=== PATIENT | female | born 1960 | race Caucasian/White ===

== ENCOUNTER 2020-07-30 09:18 | Outpatient (CLI) | payer OTHER, MEDICARE, SELFPAY ==
--- NOTE | ~2020-07-30 | US_ITS ---
EXAMINATION: US venous doppler LE RT DATE: 07/30/2020 09:59 INDICATION: Right lower limb pain and tenderness. TECHNIQUE: Grayscale ultrasound images without and with compression and Doppler ultrasound images of the right lower extremity veins were obtained. COMPARISON: None. FINDINGS: The visualized portions of right common femoral vein, profunda (deep) femoral vein, femoral vein, pop liteal vein, peroneal trunk, posterior tibial veins, peroneal veins, gastrocnemius vein and greater s aphenous vein outflow are patent. IMPRESSION: 1. No deep venous thrombosis in the right lower limb. Reviewed, dictated and finalized at location B.
== END 2020-07-30 09:19 | disposition home or self-care (01) ==
LOC: ANHIMG 09:29
PROVIDERS: PCP Family Medicine; Visit Provider Family Medicine
DX: M79.661 Pain in right lower leg (principal)
CPT/HCPCS: 93971

== ENCOUNTER 2021-12-26 13:54 | Emergency (ER) | payer MEDICARE, OTHER, SELFPAY ==
[2021-12-26 14:08] VITALS: BP 134/75; PULSE 88; RESP 16; TEMP 36.9; O2SAT 97
--- NOTE | 2021-12-26 14:19 | ED.EAR ---
HPI - Ear Problem General Chief complaint: Ear Stated complaint: Ear Problem Time Seen by Provider: 12/26/21 14:19 Source: patient Mode of arrival: ambulatory Limitations: no limitations History of Present Illness HPI Narrative: 61 y/o female presented for c/o right ear decreased hearing. states yesterday she felt the ear needed to pop, so she tugged the ear and suddenly could not hear. One episode of dizziness today when standing. Endorses chronic tinnitus, unchanged at this time Denies pain, sore throat, sinus pressure, n/v/d/f/c. MD Complaint: ear pain Related Data Home Medications Medication Instructions Recorded Confirmed atorvastatin [Lipitor] 20 mg PO DAILY 12/26/21 12/26/21 brexpiprazole [Rexulti] 1 mg PO DAILY 12/26/21 12/26/21 bupropion HCl [Wellbutrin XL] 150 mg PO DAILY 12/26/21 12/26/21 duloxetine [Cymbalta] 60 mg PO DAILY 12/26/21 12/26/21 empagliflozin-metformin [Synjardy] 1 tablet PO DAILY 12/26/21 12/26/21 insulin glargine [Lantus Solostar 80 unit SUBCUT DAILY 12/26/21 12/26/21 U-100 Insulin] lisinopril [Zestril] 2.5 mg PO DAILY 12/26/21 12/26/21 semaglutide [Ozempic] 1 mg SUBCUT WEEKLY 12/26/21 12/26/21 zolpidem [Ambien CR] 12.5 mg PO DAILY 12/26/21 12/26/21 Allergies Allergy/AdvReac Type Severity Reaction Status Date / Time aspirin Allergy Unknown Unknown Verified 12/26/21 14:29 butalbital Allergy Unknown Unknown Verified 12/26/21 14:29 caffeine Allergy Unknown Unknown Verified 12/26/21 14:29 1.MELO (DRINK)-HIVES Allergy Unknown Unknown Uncoded 12/26/21 14:29 Review of Systems Review of Systems: CONSTITUTIONAL: Denies malaise, chills, or fever. EYES: Denies visual changes, redness, or discharge. ENT: Denies rhinorrhea, congestion, sinus pain, and sore throat. Reports decreased hearing CARDIOVASCULAR: Denies chest pain, palpitations, or edema. RESPIRATORY: Denies cough or dyspnea. GASTROINTESTINAL: Denies abdominal pain, nausea, vomiting, diarrhea SKIN: Denies rash or itching. MUSCULOSKELETAL: Denies myalgia. NEUROLOGIC: Denies headache. All systems reviewed & are unremarkable except as noted in HPI and below PMFSH Family History Family History Father Hypertension Family history of diabetes mellitus in first degree relative Mother Family history of rheumatoid arthritis Family history of diabetes mellitus in first degree relative Family history of coronary artery disease Acute myocardial infarction Social History Social History Alcohol intake: never Comments At time of signature, agree with nursing past medical, surgical, social and family history. There is no relevant family history pertinent to the presenting complaint Exam Narrative: GENERAL: Well-appearing HEAD: Normocephalic EYES: conjunctivae clear ENT: Nares clear. Mucous membranes moist. TMs unable to visualize due to cerumen bilat; no tragal tenderness. NECK: Supple. No lymphadenopathy CHEST: Clear to auscultation, breath sounds equal. No wheezing, rhonchi, rales, or stridor. HEART: Regular rate and rhythm. No murmur heard. SKIN: Warm, dry, no rash. NEURO: Alert and oriented x3. PSYCH: Normal mood and affect Course Course Emergency Course: Patient is aware of diagnosis, understands and agrees to treatment plan. Anticipatory guidance given. Patient agrees to follow-up as directed and is aware of reasons to seek care at the emergency department. Portions of this record may have been created with voice recognition software Level of Care: Express Care Visit Vital Signs Vital signs: Vital Signs Temperature 98.4 F 12/26/21 14:08 Pulse Rate 88 12/26/21 14:08 Respiratory Rate 16 12/26/21 14:08 Blood Pressure 134/75 12/26/21 14:08 Pulse Oximetry 97 12/26/21 14:08 Temperature 98.4 F 12/26/21 14:08 Pulse Rate 88 12/26/21 14:08 Respiratory Rate 16 12/26/21 14:08 Blood Pressure 134/75 12/26/21 14:08 Pulse Oximetry 97 12/26/21
== END 2021-12-26 14:39 | disposition home or self-care (01) ==
PROVIDERS: Emergency Provider Nurse Practitioner Family; PCP Family Medicine
DX: H61.21 Impacted cerumen, right ear (principal); I10 Essential (primary) hypertension; E11.9 Type 2 diabetes mellitus without complications
CPT/HCPCS: 69210; 99212; G0463